=== PATIENT | female | born 1980 | race Two or more races ===

== ENCOUNTER 2021-10-05 00:43 | Inpatient (IN) | payer OTHER ==
[~2021-10-05] VITALS: Ht 167.6 cm; Wt 144.7 kg
[2021-10-05] MEDS ORDERED: DIOVAN160 M1 (00:58)
[2021-10-07] MEDS ORDERED: ZANAFLEX2 MG (15:28)
[2021-10-07] MEDS ORDERED: HYDROCHLOROTHIA25 MG (15:28)
[2021-10-09] MEDS ORDERED: RIFAMPIN300 MG (09:22)
== END 2021-10-10 15:00 | disposition home or self-care (01) | DRG 194 ==
LOC: ER 00:43 → MEDJ 15:32
PROVIDERS: ADMIT Internal Medicine; ATTEND Internal Medicine
PROC: 8E0ZXY6 Isolation (ICD-10-PCS; principal; 2021-10-05)
PROC: B246ZZZ Ultrasonography of Right and Left Heart (ICD-10-PCS; 2021-10-05)
PROC: 3E0F7GC Introduction of Other Therapeutic Substance into Respiratory Tract, Via Natural or Artificial Opening (ICD-10-PCS; 2021-10-05)
PROC: 5A0945A Assistance with Respiratory Ventilation, 24-96 Consecutive Hours, High Flow/Velocity Cannula (ICD-10-PCS; 2021-10-05)
PROC: 4A12X4Z Monitoring of Cardiac Electrical Activity, External Approach (ICD-10-PCS; 2021-10-05)
PROC: B54DZZZ Ultrasonography of Bilateral Lower Extremity Veins (ICD-10-PCS; 2021-10-06)
PROC: BW24YZZ Computerized Tomography (CT Scan) of Chest and Abdomen using Other Contrast (ICD-10-PCS; 2021-10-09)
DX: J15.7 Pneumonia due to Mycoplasma pneumoniae (principal); Z68.43 Body mass index [BMI] 50.0-59.9, adult; E66.2 Morbid (severe) obesity with alveolar hypoventilation; I89.0 Lymphedema, not elsewhere classified; L73.2 Hidradenitis suppurativa; K52.9 Noninfective gastroenteritis and colitis, unspecified; Z20.822 Contact with and (suspected) exposure to COVID-19; I10 Essential (primary) hypertension

== ENCOUNTER 2025-05-17 20:05 | Emergency (ER) | payer OTHER ==
[~2025-05-17] VITALS: Ht 162.6 cm; Wt 72.6 kg
[~2025-05-17 20:05] MED LIST: DIOVAN160 M1; HYDROCHLOROTHIA25 MG; RIFAMPIN300 MG; ZANAFLEX2 MG
[2025-05-18] MEDS ORDERED: ACETAMINOPHEN 325 MG TABLET PO STA (00:13)
[2025-05-18] MEDS ORDERED: ACETAMINOPHEN 500 MG GEL..CAP PO ONE (00:14)
[2025-05-18 01:57] LABS: BASO % 0.2 % (0.1-1.2); EOS # 0.00 (0.04-0.54); EOS % 0.0 % (0.7-7.0); LYMPH # 0.26 (1.18-3.74); LYMPH % 3.1 % (19.3-53.1); MEAN PLATELET VOLUME 9.10 fl (9.4-12.4); MONO # 0.52 (0.24-0.82); MONO % 6.1 % (4.7-12.5); NEUT # 7.64 (1.56-6.13); NEUT % 90.2 % (34.0-71.1); RED CELL DISTRIBUTION WIDTH 15.6 % (11.6-14.4)
[2025-05-18 02:31] LABS: ALT/SGPT 28.0 U/L (12-78); AST/SGOT 26.0 U/L (15-37); BILIRUBIN TOTAL 1.2 mg/dL (0.3-1.2); BUN CREA RATIO 11.0 (7.0-25.0); CREATININE SERUM 0.87 mg/dL (0.55-1.02); GFR 70.73; GLOBULINA 5.0 G/DL (2.4-3.5); GLUCOSE FASTING 140.0 mg/dL (65-100); OSMOLALITY SERUM 273.0 MOSM/KG (275-295)
[2025-05-18 02:54] LABS: COVID-19 AG NEGATIVE (NEGATIVE)
== END 2025-05-18 04:06 | disposition home or self-care (01) ==
LOC: ER 20:05
PROVIDERS: General Practice
DX: R50.9 Fever, unspecified (principal); Z20.822 Contact with and (suspected) exposure to COVID-19; Z88.6 Allergy status to analgesic agent